=== PATIENT | male | born 2000 | race Caucasian/White ===

== ENCOUNTER 2022-01-17 17:32 | Emergency (ER) | payer BC, OTHER ==
[2022-01-17 18:15] LABS: #Basophils 0.1 thou/uL (0.0-0.2); #Lymphocytes 2.6 thou/uL (1.20-3.40); #Monocytes 0.7 thou/uL (0.11-0.59); #Neutrophils 7.8 thou/uL (1.40-6.50); %Basophils 0.5 % (0.0-1.0); %Eosinophils 0.3 % (0.0-10.0); %Lymphocytes 23.4 % (28.0-48.0); %Monocytes 6.1 % (0.0-4.0); %Neutrophils 69.8 % (31.0-61.0); Hemoglobin 16.3 g/dL (14.0-18.0); Mean Corpuscular HGB CONC 33.9 g/dL (32.0-36.0); Mean Corpuscular Hemoglobin 34.5 pg (25.0-35.0); Mean Platelet Volume 8.2 fL (7.4-10.4); Platelet Count 170 thou/uL (130-400); RBC Distribution Width 11.5 % (11.5-14.5); Red Blood Cell (RBC) Count 4.71 mill/uL (4.00-5.20); White Blood Cell (WBC) Count 11.1 thou/uL (4.8-10.8)
[2022-01-17 18:35] LABS: ALT (SGPT) 25 U/L (8-55); AST (SGOT) 24 U/L (10-45); Albumin 4.5 g/dL (3.5-5.0); Alkaline Phosphatase 81 U/L (50-130); Anion Gap 23 mmol/L (10-20); BUN (Urea Nitrogen) 13 mg/dL (8.4-21.0); Bilirubin, Total 0.6 mg/dL (0.2-1.2); Calc. Creatinine Clearance 0 mL/min (70-130); Calcium 9.9 mg/dL (7.8-10.44); Carbon Dioxide 16 mmol/L (22-29); Chloride 103 mmol/L (98-107); Estimated GFR 99; Globulin 3.2 g/dL (2.4-3.5); Glucose 107 mg/dL (70-105); Potassium 4.1 mmol/L (3.5-5.1); Protein, Total 7.7 g/dL (6.0-8.3); Sodium 138 mmol/L (136-145)
== END 2022-01-17 20:15 ==
LOC: ERS 17:32
DX: S01.01XA Laceration without foreign body of scalp, initial encounter (principal); G40.909 Epilepsy, unspecified, not intractable, without status epilepticus; W18.30XA Fall on same level, unspecified, initial encounter; Y99.0 Civilian activity done for income or pay
CPT/HCPCS: 12001; 36415; 70450; 80053; 85025